=== PATIENT | male | born 1970 | race Caucasian/White ===

== ENCOUNTER 2020-05-23 19:48 | Emergency (ER) | payer BC ==
--- OUTSIDE RECORDS SUMMARY | 2020-05-23 19:51 | XMS REPORT ---
:1970 Author Organization eClinicalWorks Care Team Providers Name Role Phone Harshad Jose Luis Provider Role Unavailable Allergies No Known Allergies Problems Problem Type Condition Code Onset Dates Condition Statu s Problem Erectile dysfunction, unspecified N52.9 Active erectile dysfunction type Problem Encounter for screening colonoscopy Z12.11 Active Problem Encounter for general adult medical Z00.01 Active examination with abnormal findings Problem Mixed hyperlipidemia E78.2 Active Problem Pain in left knee M25.562 Active Problem Obesity (BMI 30-39.9) E66.9 Active Problem Plantar wart, left foot B07.0 Acti ve Problem Psoriasis L40.9 Active Problem Prediabetes R73.03 Active Problem Low vitamin D level R79.89 Active Assessment Screening for tuberculosis Z11.1 A ctive Problem High cholesterol E78.00 Active Problem Tinnitus of both ears H93.13 Active Problem Other chronic pain G89.29 Active Problem Erectile dysfunction F52.21 Active Problem Chronic fatigue R53.82 Active Medications No Known Medications Results No Known Results Immunizations Vaccine Administration Date TB PPD March 28, 2020 Summary Purpose eClinicalWorks Submission
--- OUTSIDE RECORDS SUMMARY | 2020-05-23 19:51 | XMS REPORT ---
:1970 Author Organization eClinicalWorks Care Team Providers Name Role Phone Haywood, Na Provider Role Unavailable Allergies No Known Allergies [...] Low vitamin D level R79.89 Active Assessment Prediabetes R73.03 Active Assessment Mixed hyperlipidemia E78.2 Active Assessment Vitamin D deficiency E55.9 Active Assessment Psoriasis L40.9 Active Problem High cholesterol E78.00 Active Problem Tinnitus of both ears H93.13 Active Problem Other chronic pain G89.29 Active Problem Erectile dysfunction F52.21 Active Problem Chronic fatigue R53.82 Active Medications Medication Code Code Instructions Start End Status Dosage System Date Date Triamcinolone [facility] 78296835719 0.1 % Active 1 appl ication Acetonide Externally Twice a day Crestor [facility] [id number] 10 MG Orally Active 1 table t Once a day Results No Known Results Summary Purpose eClinicalWorks Submission
--- OUTSIDE RECORDS SUMMARY | 2020-05-23 19:51 | XMS REPORT ---
[...] Problem Low vitamin D level R79.89 Active Problem High cholesterol E78.00 Active Problem Tinnitus of both ears H93.13 Active Problem Other chronic pain G89.29 Active Problem Erectile dysfunction F52.21 Active Problem Chronic fatigue R53.82 Active Medications Medication Code System Code Instructions Start Date End Date Status Dosage Crestor [facility] [id number] 20 MG Orally Once Active 1 tablet a day Results No Known Results Summary Purpose eClinicalWorks Submission
--- OUTSIDE RECORDS SUMMARY | 2020-05-23 19:51 | XMS REPORT | Continuity of Care Document ---
:1970 Author Organization [facility] t Address [address] [place] [address] Care Team Providers Name Role Phone Unavailable Unavailable Unavailable Payers Payer Name Policy Type Policy Number Effective Date Expiration Date S ource Problems Condition Condition Condition Status Onset Resolution Last Treating Co mments Source Name Details Category Date Date Treatment Clinician Date High High Problem Active [facility]olestero [facility] Erectile Erectile Problem [facility] dysfunctio dysfunctio [facility] Erectile Erectile Problem Active [facility] dysfunctio dysfunctio Natalie kes - n, n, Memoria unspecifie unspecifie l d erectile d erectile Ou tpati dysfunctio dysfunctio en t n type n type Clinics Encounter Encounter Problem Active [facility] - screening screening Thomas sharon colonoscop colonoscop l y y Outpati ent Clinics Encounter Encounter Problem Active [facility] - general general Memoria adult adult l medical medical Outpati examinatio examinatio en t n with n with Clinics abnormal abnormal findings findings Mixed Mixed Diagnosis Active [facility] hyperlipid hyperlipid Natalie kes - emia emia [facility] Pain in Pain in Problem Active [facility] left knee left knee [facility] - [facility] Obesity Obesity Problem Active [facility] (BMI (BMI [facility] - 30-39.9) 30-39.9) Memori a l [facility] ent Clinics Plantar Plantar Problem Active [facility] wart, left wart, left Natalie kes - foot foot [facility] Psoriasis Psoriasis Diagnosis Active [facility] Prediabete Prediabete Diagnosis Active [facility] Low Low Problem Active [facility] vitamin D vitamin D [facility] - level level [facility] Tinnitus Tinnitus Problem Active [facility] of both of both [facility] - ears ears [facility] Other Other Problem Active [facility] chronic chronic [facility] - pain pain [facility] Chronic Chronic Problem Active [facility] fatigue fatigue [facility] Vitamin D Vitamin D Diagnosis Active [facility] deficiency deficiency Natalie kes - [facility] Clinics Allergies, Adverse Reactions, Alerts Allergy Allergy Status Severity Reaction(s) Onset Inactive Treating Comm ents Source Name Type Date Date Clinician No Known DA Active [facility]-16 [place] [facility] Medications Ordered Filled Start Stop Current Ordering Indication Dosage Frequency Signature Comments Components Source Medication Medication Date Date Medication? Clinician (SIG) Name Name Triamcinolo Triamcinolo Yes Na Haywood [address] [facility] ne ne applicatio [facility] - Acetonide Acetonide n [facility] Crestor Crestor Yes Na Haywood [address] [facility] Immunizations Ordered Filled Immunization Date Status Comments Sourc e Immunization Name Name TB PPD TB PPD 2020-03-28 Completed [facility] - 00:00:00 [facility] Procedures This patient has no known procedures. Encounters Start End Encounter Admission Attending Care Care Encounter Source Date/Time Date/Time Type Type Clinicians Facility Department ID 2020-04-17 2020-04-17 [place] [facility] [id number] [facility] 16:20:00 16:20:00 [facility] Medicine [facility] ent Clinics 2020-03-28 2020-03-28 [place] [id number] [facility] 15:00:00 15:00:00 [facility] Medicine l [facility] 2020-03-21 2020-03-21 [place] [facility] [place] [id number] [facility] 08:53:00 08:53:00 [facility] Medicine Outpati ent Clinics 2020-03-12 2020-03-12 [place] [id number] [facility] 16:39:00 16:39:00 [place] [employer] [facility] [place] [facility] Medicine Outpati ent Clinics 2019-12-16 2019-12-16 [place] [id number] [facility] 10:32:00 10:32:00 [place] [employer] [facility] Medicine Outpati ent Clinics 2019-11-08 2019-11-08 [place] [id number] 11:04:00 11:04:00 t [place] [employer] [facility] [place] [facility] Medicine Outpati ent Clinics 2019-10-19 2019-10-19 [place] [id number] 16:31:00 16:31:00 t [place] [employer] [facility] [place] [facility] Medicine Outpati ent Clinics 2019-09-23 2019-09-23 [place] [id number] [facility] 11:40:00 11:40:00 t [place] [employer] [facility] Medicine Outpati ent Clinics 2019-09-13 2019-09-13 [facility] [id number] 16:11:00 16:11:00 t [employer] [facility] Medicine Outpati ent Clinics 2019-05-09 2019-05-09 [place] [id number] 08:33:00 08:33:00 t [facility] [place] ent Clinics 2019-05-06 2019-05-06 [place] [id number] 11:34:00 11:34:00 t [facility] [place] ent Clinics 2019-05-06 2019-05-06 [facility] [id number] [address] 11:00:00 11:00:00 t [place] [employer] [facility] Outpati ent Clinics 2019-05-06 2019-05-06 [facility] [id number] 09:00:00 09:00:00 t [facility] [place] ent Clinics 2019-04-28 2019-04-28 Outpatient [facility] [id number] 10:30:00 10:30:00 t [facility] [place] ent Clinics 2019-03-18 2019-03-18 Outpatient [facility] [id number] [facility] 13:50:00 13:50:00 t [employer] [place] [facility] ent Clinics 2018-04-22 2018-04-22 Outpatient Rosio [facility] [id number] [facility] 09:15:00 09:15:[address] [employer] [address] [facility] ent Clinics Results This patient has no known results.
--- OUTSIDE RECORDS SUMMARY | 2020-05-23 19:51 | XMS REPORT ---
[...] R73.03 Active Assessment Mixed hyperlipidemia E78.2 Active Problem High cholesterol E78.00 Active Problem Tinnitus of both ears H93.13 Active Problem Other chronic pain G89.29 Active Problem Erectile dysfunction F52.21 Active Problem Chronic fatigue R53.82 Active Medications No Known Medications Results No Known Results Summary Purpose eClinicalWorks Submission
--- NOTE | 2020-05-23 20:19 | EDPHYS ---
Physician Documentation [facility] Name: Donny Fonseca Age: 49 yrs Sex: Male : 1970 Arrival Date: 05/23/2020 Time: 19:56 Bed 7 Private MD: Maggy Haywood ED Physician Collin Gonsales HPI: 05/23 20:13 This 49 yrs old Male presents to ER via Unassigned with complaints of Rash. cp 20:13 The patient's rash thought to be caused by an unknown cause. The rash is located on the cp left side of neck and upper chest. The rash can be described as erythematous. Onset: The symptoms/episode began/occurred "couple days". Associated signs and symptoms: Pertinent negatives: difficulty breathing, fever. Severity of symptoms: in the emergency department the symptoms are worse mildly. Treatment given at home: Benadryl. - Immunization history:: Adult Immunizations up to date. - Social history:: Smoking status: Patient denies any tobacco usage or history of. ROS: 20:16 Constitutional: Negative for body aches, chills, fever. cp 20:16 Respiratory: Negative for cough, shortness of breath, wheezing. 20:16 Skin: Positive for rash, of the left side of neck and upper chest. 20:16 All other systems are negative. Exam: 20:16 Constitutional: The patient appears in no acute distress, alert, awake, comfortable, cp non-toxic, well developed, well nourished. 20:16 Cardiovascular: Rate: normal. 20:16 Respiratory: the patient does not display signs of respiratory distress, Respirations: normal. 20:16 Skin: noted well circumscribed area of erythema left side of neck and upper chest, mild tenderness to palpation, warm. Vital Signs: 20:07 BP 123 / 75; Pulse 86; Resp 16; Temp 98.5(O); Pulse Ox 97% on R/A; Weight 97.52 kg; ar5 Height 5 ft. 10 in. (177.80 cm); Pain 2/10; 20:07 Body Mass Index 30.85 (97.52 kg, 177.80 cm) ar5 MDM: 20:01 Patient medically screened. cp 20:15 Differential diagnosis: impetigo, cellulitis, abscess, erysipelas. cp 20:17 Data reviewed: vital signs, nurses notes, and as a result, I will discharge patient. cp 20:17 Counseling: I had a detailed discussion with the patient and/or guardian regarding: the cp historical points, exam findings, and any diagnostic results supporting the discharge/admit diagnosis, to return to the emergency department if symptoms worsen or persist or if there are any questions or concerns that arise at home. 05/23 20:15 Order name: Misc. Order: please outline area of erythema; Complete Time: 21:25 cp Administered Medications: 21:24 Drug: Bactrim (160 mg-800 mg (DS) 1 tablet Route: PO; ea 21:25 Follow up: Response: Medication administered at discharge. ea 21:25 Drug: Doxycycline 100 mg Route: PO; ea : Follow up: Response: Medication administered at discharge. ea Disposition: 20:30 Chart complete. 05/24 05:25 Co-signature as Attending Physician, Collin Gonsales MD I agree with the assessment and tw4 plan of care. Disposition: 05/23/20 20:18 Discharged to Home. Impression: Erysipelas. - Condition is Stable. - Discharge Instructions: Erysipelas, Antibiotic Medicine, Adult. - Prescriptions for Doxycycline Hyclate 100 mg Oral Tablet - take 1 tablet by ORAL route every 12 hours; 20 tablet. Bactrim DS 800- 160 mg Oral Tablet - take 1 tablet by ORAL route every 12 hours for 10 days; 20 tablet. - Medication Reconciliation Form, Thank You Letter, Antibiotic Education, Prescription Opioid Use form. - Follow up: Private Physician; When: 48 Hours; Reason: Worsening of condition. - Problem is new. - Symptoms have improved. Signatures: Hernán Waterman PA PA cp Antunez, Elena, RN RN Collin Vera MD MD tw4 Corrections: (The following items were deleted from the chart) 05/23 21:26 20:18 05/23/2020 20:18 Discharged to Home. Impression: Erysipelas. Condition is Stable. ea Forms are Medication Reconciliation Form, Thank You Letter, Antibiotic Education, Prescription Opioid Use. Follow up: Private Physician; When: 48 Hours; Reason: Worsening of condition. Problem is new. Symptoms have improved. cp
--- NOTE | 2020-05-23 20:19 | ER ---
Nurse's Notes [facility] Name: Donny Fonseca Age: 49 yrs Sex: Male : 1970 Arrival Date: 05/23/2020 Time: 19:56 Bed 7 Private MD: Maggy Haywood Diagnosis: Erysipelas Presentation: 05/23 20:16 Chief complaint: Patient states: Reports he noticed a red bug bite about four days ago ea reports the redness around the area started spreading and joints fell stiff. Coronavirus screen: At this time, the client does not indicate any symptoms associated with coronavirus-19. Ebola Screen: No symptoms or risks identified at this time. Initial Sepsis Screen: Does the patient meet any 2 criteria? No. Patient's initial sepsis screen is negative. Does the patient have a suspected source of infection? No. Patient's initial sepsis screen is negative. Risk Assessment: Do you want to hurt yourself or someone else? Patient reports no desire to harm self or others. Onset of symptoms was May 23, 2020. 20:16 Method Of Arrival: Ambulatory ea 20:16 Acuity: ANDRA 4 ea Triage Assessment: 20:20 General: Appears in no apparent distress. Behavior is appropriate for age. Pain: ea Complains of pain in left supraclavicular area. Derm: Skin is red, Skin temperature is warm. - Immunization history:: Adult Immunizations up to date. - Social history:: Smoking status: Patient denies any tobacco usage or history of. Screenin:16 Abuse screen: Denies threats or abuse. Nutritional screening: No deficits noted. ea Tuberculosis screening: No symptoms or risk factors identified. Fall Risk None identified. Assessment: 21:25 Reassessment: Patient and/or family updated on plan of care and expected duration. Pain ea level reassessed. Patient is alert, oriented x 3, equal unlabored respirations, skin warm/dry/pink. Discharge instruction given to patient, verbalized th understanding. Pt left ED ambulatory tolerating well. Vital Signs: 20:07 BP 123 / 75; Pulse 86; Resp 16; Temp 98.5(O); Pulse Ox 97% on R/A; Weight 97.52 kg; ar5 Height 5 ft. 10 in. (177.80 cm); Pain 2/10; 20:07 Body Mass Index 30.85 (97.52 kg, 177.80 cm) ar5 ED Course: 19:56 Patient arrived in ED. am2 19:56 Maggy Haywood MD is Private Physician. am2 20:00 Hernán Waterman PA is PHCP. cp 20:00 Collin Gonsales MD is Attending Physician. cp 20:10 Anant Lundy, RN is Primary Nurse. sg 20:16 Patient has correct armband on for positive identification. Placed in gown. Bed in low ea position. Call light in reach. 20:18 Triage completed. ea 20:18 Arm band placed on right wrist. Patient placed in an exam room, on a stretcher, on ea pulse oximetry. 21:26 No provider procedures requiring assistance completed. Patient did not have IV access ea during this emergency room visit. Administered Medications: 21:24 Drug: Bactrim (160 mg-800 mg (DS) 1 tablet Route: PO; ea 21:25 Follow up: Response: Medication administered at discharge. ea 21:25 Drug: Doxycycline 100 mg Route: PO; ea 21:25 Follow up: Response: Medication administered at discharge. ea Outcome: 20:18 Discharge ordered by MD. cp 21:26 Discharged to home ambulatory. ea 21:26 Condition: stable 21:26 Discharge instructions given to patient, Instructed on discharge instructions, follow up and referral plans. medication usage, Demonstrated understanding of instructions, follow-up care, medications, Prescriptions given X 2. 21:26 Patient left the ED. ea Signatures: Anant Lundy, Hernán Jarrett RN, PA PA cp Moreno, Amanda am Esme Otto RN RN ea Robles, [facility]
[2020-05-23] MEDS ORDERED: SMZ./TMP. 800/160 MG TABLET ONE (21:23)
[2020-05-23] MEDS ORDERED: DOXYCYCLINE 100 MG CAP PO ONE (21:23)
[2020-05-23 21:31] VITALS: BP 123/75; TEMP 98.5; O2SAT 97
== END 2020-05-23 21:26 | disposition home or self-care (01) ==
LOC: ER 19:48
DX: A46 Erysipelas (principal)
CPT/HCPCS: 99283